=== PATIENT | male | born 1975 | race Caucasian/White ===

== ENCOUNTER 2020-04-03 09:18 | Inpatient (IN) | payer BC, SELFPAY ==
[~2020-04-03] VITALS: Ht 182.9 cm; Wt 111.1 kg
[2020-04-03 09:24] VITALS: BP_SYST 145
--- NOTE | 2020-04-03 09:27 | NUR ---
AMBULATED TO BED 1
--- NOTE | 2020-04-03 09:31 | NUR ---
ER Dr. Hoffman at bedside examining patient.
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
[2020-04-03] MEDS ORDERED: KETOROLAC TROMETHAMINE 60 MG/2 ML VIAL IM ONE ×2 (09:49→10:00)
--- NOTE | 2020-04-03 09:58 | NUR ---
Patient transported to radiology ambulatory, accompanied by staff.
[2020-04-03] MEDS ORDERED: NS 500 ML IV ONE (11:00)
[2020-04-03] MEDS ORDERED: ONDANSETRON HCL 4 MG/2 ML VIAL IVP PRN (11:30)
[2020-04-03] MEDS ORDERED: MORPHINE 2 MG/ML INJ. SYRINGE IVP PRN ×2 (11:30)
[2020-04-03 11:32] LABS: BASOPHILS # (AUTO) 0.1 K/uL (0.0-0.2); BASOPHILS % (AUTO) 1.1 % (0.0-2.0); EOSINOPHILS # (AUTO) 0.1 K/uL (0.0-0.4); EOSINOPHILS % (AUTO) 0.9 % (0.0-4.0); HEMOGLOBIN 15.9 g/dL (14.0-18.0); LYMPHOCYTES % (AUTO) 8.2 % (20.5-51.5); MEAN CORPUSCULAR HEMOGLOBIN 31 pg (27-31); MEAN CORPUSCULAR HGB CONC 34 % (32-36); MEAN CORPUSCULAR VOLUME 90 fL (79.0-98.0); MONOCYTES # (AUTO) 0.5 K/uL (0.0-1.0); MONOCYTES % (AUTO) 4.1 % (1.7-9.3); NEUTROPHILS # (AUTO) 10.8 K/uL (1.8-7.7); NEUTROPHILS % (AUTO) 85.7 % (40.0-70.0); PLATELET COUNT (AUTO) 192 K/uL (130-430); RED BLOOD CELL COUNT(AUTO) 5.21 MIL/uL (4.2-6.2); RED CELL DISTRIBUTION WIDTH 12.9 % (9.0-15.0); WHITE BLOOD COUNT (AUTO) 12.6 K/uL (4.8-10.8)
[2020-04-03 11:46] LABS: CALCIUM 8.7 mg/dL (8.4-11.0); CREATININE 1.1 mg/dL (0.55-1.30); POTASSIUM 4.4 mmol/L (3.5-5.1)
[2020-04-03 11:52] LABS: INR 1.1 (0.80-1.20); PROTHROMBIN TIME 10.9 SECS (9.5-12.5)
[2020-04-03 11:56] LABS: ALBUMIN 3.9 g/dL (3.4-4.8); TOTAL BILIRUBIN 0.4 mg/dL (0.0-1.0)
[2020-04-03] MEDS ORDERED: METF-796 PO (12:05)
[2020-04-03] MEDS ORDERED: DULA0.75 SQ (12:05)
--- NOTE | 2020-04-03 13:02 | NUR ---
Transfer to TELE via ACLS protocol. Licensed nurse present. IV present no signs or symptoms of infiltration.Patient will be admitted to care of DR ZUÑIGA. Admitted to TELE unit. Will go to room 109. Belongings list completed. Complete and up to date summary report printed. SBAR report to be given at bedside with opportunity for questions.
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
[2020-04-03 13:10] VITALS: BP_SYST 134
--- NOTE | 2020-04-03 13:10 | NUR ---
Notes- received patient from Er awake and oriented, has sling on right arm. pain is control at this time. On room air. oriented to room set up, call light use. Enc to call for help as needed.
--- NOTE | 2020-04-03 14:00 | NUR ---
Notes- Eating lunch, no distress noted.
[2020-04-03] MEDS ORDERED: DEXTROSE 50%-WATER 50 ML DISP.SYRIN IVP PRN (15:00)
[2020-04-03] MEDS ORDERED: DEXTROSE 37.5 GM GEL..GRAM. PO PRN (15:00)
[2020-04-03] MEDS ORDERED: D5W 1,000 ML IV PRN (15:00)
[2020-04-03 15:05] VITALS: BP_SYST 134
--- NOTE | 2020-04-03 15:16 | NUR ---
CONSULTATION PAGED/CALLED Reason for Consultation: [] PNEUMOTHORAX Person Who was Notified: [] KATHY Consulting Physician: [] DR ROMEO Barrel Lapper Specialty: [] PULMO Ordering Physician: [] DR ZUÑIGA
--- NOTE | 2020-04-03 15:17 | NUR ---
CONSULTATION PAGED/CALLED Reason for Consultation: [] PNEUMOTHORAX Person Who was Notified: [] KATHY Consulting Physician: [] SHER ESPINOZA Linseed Oil Press Tender Specialty: [] THORACIC SURGEON Ordering Physician: [] DR ZUÑIGA
--- NOTE | 2020-04-03 15:30 | NUR ---
MD rounds Seen by Dr. Luna at bedside. oxygen applied as ordered.
--- NOTE | 2020-04-03 16:00 | NUR ---
Notes- Spoke to Dr. PRATT and made aware of consults. New orders received, Per Md he cannot see patient until mondasy but wants ER doctor to put the Chest Tube. Charge nurse informed ER doctor.
--- NOTE | 2020-04-03 16:15 | NUR ---
Notes- Called CAT scan and follow up on stat CT chest order, per staff they are still busy at this time.
--- NOTE | 2020-04-03 16:42 | NUR ---
CONSULTATION PAGED/CALLED Reason for Consultation: [] CLAVICLE FRACTURE Person Who was Notified: [] LEFT A VOICE MESSAGE ON HIS CELL PHONE Consulting Physician: [] DR MADDI ELIAS Cycle Liaison Specialty: [] ORTHO Ordering Physician: [] DR ZUÑIGA Addendum: 04/03/20 at 1649 by Annel Lopez [place]/ CALLED THE OFFICE NUMBER [phone] AND THE EXCHANGE SAID THAT IT IS DR NÚÑEZ FINGERPRINT EXPERT. SPOKE TO DWAYNE
[2020-04-03] MEDS: HYDROcodone/ACETAMIN 10-325 MG TAB PO PRN ×2 (16:45→23:35)
[2020-04-03] MEDS: INSULIN LISPRO SLIDING SCALE 100 UNITS/ML VIAL (humaLOG) SUBCUT SCH ×2 (16:50→20:20)
--- NOTE | 2020-04-03 17:30 | NUR ---
Notes- applied oxygen on patient as per Dr. Luna's order.
--- NOTE | 2020-04-03 18:02 | NUR ---
Notes- Spoke to Dr. Jiang and he will see patient to in AM.
--- NOTE | 2020-04-03 18:39 | NUR ---
Dr Shrestha SW Dr Shrestha, per MD he cannot see pt until sunday so he is having the ER Doctor to insert chest tube. SW Dr Hoffman twice, Dr Hoffman is swamped with patient in the ED. Patient is asymptomatic at this time, no SOB, O2 sat at 98% on room air. CT Scan was not done yet as of writing. Instructed patient signs and symptoms to watch out for and educated on use of call light, telephone. Patient verbalized understanding
--- NOTE | 2020-04-03 19:30 | NUR ---
Initial note: Received report from zain RN. Patient brought back to the floor from CT scan. Patient is in bed, resting. No acute distress. Breathing is even and nonlabored on 4L nasal cannula. IV site is patent and intact, saline locked. Bed is locked at lowest position. Side rails up x2. Call light is with patient. Safety and fall precautions in place. Will continue with plan of care.
[2020-04-03 20:00] VITALS: BP_SYST 134
--- NOTE | 2020-04-03 20:53 | NUR ---
Spoke to Dr. Shrestha: Spoke to Dr. Shrestha over the phone. Dr. Shrestha wanted to know when the chest tube in place. Notified Addendum: 04/04/20 at 0320 by Swapna Reyes RN Notified dye house supervisor of situation. Per dye house supervisor, ER is saturated and the Dr. Saenz cannot leave ER. Dr. Shrestha asked to speak to dye house supervisor due to the urgency of the chest tube. Dr. Shrestha verbalized new orders. Verified by readback. RN to input. Transferred call to dye house supervisor.
--- NOTE | 2020-04-03 21:26 | NUR ---
Spoke to Dr. Oconnor: Spoke to Dr. Oconnor over the phone. Notified MD of patient's primary physician
[2020-04-03] MEDS ORDERED: LIDOCAINE 2%, 20 ML MDV ONE (22:23)
[2020-04-03] MEDS ORDERED: LIDOCAINE 2%, 20 ML MDV INJ ONE (22:30)
--- NOTE | 2020-04-03 22:30 | NUR ---
Chest tube placement: Chest tube placement per MD order. Dr. Saenz and radiology at bedside. Patient tolerated well.
[2020-04-04] VITALS: BP_SYST 140
[2020-04-04] MEDS: INSULIN LISPRO SLIDING SCALE 100 UNITS/ML VIAL (humaLOG) SUBCUT SCH ×4 (06:06→21:48)
--- NOTE | 2020-04-04 06:50 | NUR ---
CLOSING NOTES: PATIENT IS RESTING IN BED. NO ACUTE DISTRESS. BREATHING IS EVEN AND NONLABORED ON 4L NASAL CANNULA. IV SITE IS PATENT AND INTACT. CHEST TUBE IN PLACE AND DRAINING TO GRAVITY. ALL NEEDS MET. BED IS LOCKED AT LOWEST POSITION. SIDE RAILS UP. CALL LIGHT IS WITH PATIENT. SAFETY AND FALL PRECAUTIONS IN PLACE. WILL ENDORSE CARE TO DAYSHIFT RN.
[2020-04-04 07:12] LABS: BASOPHILS % (AUTO) 0.3 % (0.0-2.0); EOSINOPHILS # (AUTO) 0.3 K/uL (0.0-0.4); EOSINOPHILS % (AUTO) 3.4 % (0.0-4.0); HEMATOCRIT 42.9 % (36-54); HEMOGLOBIN 14.6 g/dL (14.0-18.0); LYMPHOCYTES # (AUTO) 2.5 K/uL (1.0-5.5); LYMPHOCYTES % (AUTO) 31.9 % (20.5-51.5); MEAN CORPUSCULAR HEMOGLOBIN 31 pg (27-31); MEAN CORPUSCULAR HGB CONC 34 % (32-36); MEAN CORPUSCULAR VOLUME 90 fL (79.0-98.0); MONOCYTES # (AUTO) 0.6 K/uL (0.0-1.0); MONOCYTES % (AUTO) 7.5 % (1.7-9.3); NEUTROPHILS # (AUTO) 4.5 K/uL (1.8-7.7); NEUTROPHILS % (AUTO) 56.9 % (40.0-70.0); PLATELET COUNT (AUTO) 169 K/uL (130-430); RED BLOOD CELL COUNT(AUTO) 4.75 MIL/uL (4.2-6.2); RED CELL DISTRIBUTION WIDTH 12.8 % (9.0-15.0); WHITE BLOOD COUNT (AUTO) 7.8 K/uL (4.8-10.8)
[2020-04-04 07:29] LABS: CALCIUM 8.1 mg/dL (8.4-11.0); CREATININE 1.06 mg/dL (0.55-1.30); POTASSIUM 3.8 mmol/L (3.5-5.1)
[2020-04-04 07:36] LABS: ALBUMIN 3.2 g/dL (3.4-4.8); TOTAL BILIRUBIN 0.7 mg/dL (0.0-1.0)
[2020-04-04 08:00] VITALS: BP_SYST 155
[2020-04-04] MEDS: HYDROcodone/ACETAMIN 10-325 MG TAB PO PRN ×2 (08:51→16:29)
--- NOTE | 2020-04-04 11:09 | NUR ---
alert, oriented and awake. finished his breakfast just now. 0800- seen by pulm, dr altman, chest tube to water seal, done latest xray this am, NO ABNORMALITIES, ( no pnemotx) 1000, thoracic came in, Chest tube back to wall suction, -20 ( done). wanted norco 10/325 mg po for pain, relieved ( bp then 155/104).. will initiated IS when patient ready.
[2020-04-04 12:00] VITALS: BP_SYST 136
[2020-04-04 16:00] VITALS: BP_SYST 126
--- NOTE | 2020-04-04 17:19 | NUR ---
compliant with IS on his own, on room air, sat well, 96-98% encouraged to wiggle all fingers, the right ones second pain meds, [place] 10/325mg po given at 1630.
--- NOTE | 2020-04-04 19:30 | NUR ---
initial notes: pt is awake, alert, oriented x 4. no complain of pain, no sob. not distress. stable on monitor. pt has chest tube connect to low suction n wall. no air leaks. iv lock to left ac gauge 20 intact and patent. pt has multiple bruises on his body. scabs are dry and intact. explain plan of care. pt demonstrate how to use IS.needs attended. yvonne light in reach. low bed position. will follow-up.
[2020-04-04 19:57] VITALS: BP_SYST 144
--- NOTE | 2020-04-04 22:00 | NUR ---
pt is watching tv. no pain. not distress. stable. needs attended. will monitor.
[2020-04-05] VITALS: BP_SYST 142
--- NOTE | 2020-04-05 | NUR ---
sleeping, vital sigh stable. needs attended.
--- NOTE | 2020-04-05 02:00 | NUR ---
sleeping, no acute distress stable. safety precaution in place.
[2020-04-05] MEDS: HYDROcodone/ACETAMIN 10-325 MG TAB PO PRN ×3 (03:04→20:47)
--- NOTE | 2020-04-05 03:06 | NUR ---
pt call for assistance to bathroom. steady gait. back to bed. complain of pain. prn pain medication given educate about safeyt and side effects. verbalized understanding. stable. needs attended. yvonne light in reach. will follow-up.
--- NOTE | 2020-04-05 04:00 | NUR ---
sleeping, no pain, no sob, stable. will follow up.
[2020-04-05] MEDS: INSULIN LISPRO SLIDING SCALE 100 UNITS/ML VIAL (humaLOG) SUBCUT SCH ×4 (06:41→20:52)
--- NOTE | 2020-04-05 06:54 | NUR ---
closing: pt is sleeping, wake up for blood sugar check 156, cover per md's order.stable, no pain. chest tube is intact with no air leak. needs attended the whole, call light in reach. will give sbar report to am rn.
[2020-04-05 08:07] VITALS: BP_SYST 144
[2020-04-05 15:31] VITALS: BP_SYST 139
--- NOTE | 2020-04-05 19:55 | NUR ---
CLOSING NOTES, PT HAS BEEN STABLE THE WHOLE SHIFT, GIVEN X1 PAIN MEDICATIONS. CHEST TUBE KEPT AT WATER SEAL SINCE THIS MORNING PER DR PENNY, ENDORSED TO NIGHT NURSE THAT CHEST TUBE SHOUD BE CLAMPED AT 0800 AM 04-06-20 AND CHEST XRAY SCHEDULED AT 10 AM.
[2020-04-05 20:25] VITALS: BP_SYST 142
--- NOTE | 2020-04-05 20:25 | NUR ---
Opening notes Pt AAOx4, VSS, afebrile. No s/s distress noted. Chest tube to low suction with bloody drainage, no air leak noted. Dressing to right upper chest C/D/I. R. arm sling on. Pt c/o 10/14 R. shoulder pain, will medicate as needed. Pt provided with warm wash cloths to wash himself and assisted with gown change. Call light within reach. Safety maintained. To monitor.
--- NOTE | 2020-04-05 20:47 | NUR ---
Pain Pt c/o 10/14 R. shoulder pain, medicated with [place] 1 tab PO as needed. Explained possible side effects, pt verb understanding. Call light/items within reach. Bed low, locked, siderails up x2. To monitor.
[2020-04-06 00:20] VITALS: BP_SYST 135
--- NOTE | 2020-04-06 00:20 | NUR ---
Rounds Pt asleep, easily awakens, VSS, no acute distress noted, pt denies pain. Chest tube R. chest no air leak noted. Call light within reach. Bed low, locked, siderails up x2. To monitor.
--- NOTE | 2020-04-06 04:30 | NUR ---
Rounds Pt awake, no s/s distress noted. Urinal emptied. Chest tube to low wall suction intact, no air leak. Call light within reach. To monitor.
--- NOTE | 2020-04-06 06:22 | NUR ---
Closing notes Pt AAOx4, no s/s distress noted. No c/o pain. Chest tube to low suction with bloody drainage, no air leak noted. Dressing to right upper chest C/D/I. R. arm sling on. Call light/urinal within reach. Safety maintained. To endorse to AM nurse.
[2020-04-06] MEDS: INSULIN LISPRO SLIDING SCALE 100 UNITS/ML VIAL (humaLOG) SUBCUT SCH ×4 (06:26→22:02)
[2020-04-06 07:46] VITALS: BP_SYST 131
--- NOTE | 2020-04-06 08:30 | NUR ---
CHEST TUBE CLAMPED, ENCOURAGED PT TO CALL FOR ASSIST IF HE FEELS SOB OR ANY PAIN AFTER CLAMPING. WILL CONT TO MONITOR.
--- NOTE | 2020-04-06 09:31 | NUR ---
DR PENNY IS HERE AND MADE AWARE THAT CHEST TUBE WAS CLAMPED AT 0830AM, MD INFORMED THAT CXR WAS SCHEDULED AT 1000AM.
[2020-04-06 11:27] VITALS: BP_SYST 127
--- NOTE | 2020-04-06 12:14 | NUR ---
informed dr lainez re results of chest xray, said keep chest tube clamped and he will dc it in am. said he already spoke with dr ag, thoracic surgeon, informed pt of the plan. pt verbalized understanding.
--- NOTE | 2020-04-06 13:17 | NUR ---
Nutrition Update Luis scale 18 noted. Pt admitted for fractured clavicle, pneumothorax Diet: [facility] Diet BMI: 33.2 kg/m2 RD to follow per nutrition care standards.
[2020-04-06 15:29] VITALS: BP_SYST 131
--- NOTE | 2020-04-06 15:34 | NUR ---
pt resting in bed, no sob, no distress. no c/o pain. encouraged to call for asssist and pain meds, call light in reach. will cont to monitor.
--- NOTE | 2020-04-06 17:42 | NUR ---
Pt in bed, eating dinner, denies pain, no sob, Chest tube clamped since 830 am. encouraged to call for assist and pain meds or any concerns. call light in reach.
[2020-04-06 20:00] VITALS: BP_SYST 142
--- NOTE | 2020-04-06 20:00 | NUR ---
Opening notes Pt sitting in chair, talking on the phone, no s/s distress noted. VSS. No c/o pain or sob. Chest tube clamped, dressing R. chest C/D/I. R. arm elevated on pillow. Call light within reach. To monitor.
[2020-04-07 00:05] VITALS: BP_SYST 137
--- NOTE | 2020-04-07 00:05 | NUR ---
Rounds Pt asleep, easily awakens, no s/s distress. VSS. No c/o pain. R. arm maintained elevated on pillow. Call light within reach. To monitor.
--- NOTE | 2020-04-07 04:30 | NUR ---
Rounds Pt awake, no c/o pain. R. arm floated on pillow. Chest tube clamped. Call light within reach. Bed low, locked, siderails up x2. To monitor.
--- NOTE | 2020-04-07 06:27 | NUR ---
Closing notes Pt alert, awake, no s/s distress. BS checked 196, 2 units Humalog administered per protocol. Pt denies pain. Rt chest dressing C/D/I. Chest tube clamped. Call light within reach. Bed low, locked, siderails up x2. Safety maintained.
[2020-04-07] MEDS: INSULIN LISPRO SLIDING SCALE 100 UNITS/ML VIAL (humaLOG) SUBCUT SCH ×4 (06:29→21:36)
[2020-04-07 07:18] LABS: BASOPHILS % (AUTO) 0.4 % (0.0-2.0); EOSINOPHILS # (AUTO) 0.6 K/uL (0.0-0.4); EOSINOPHILS % (AUTO) 6.5 % (0.0-4.0); HEMATOCRIT 48.7 % (36-54); HEMOGLOBIN 16.9 g/dL (14.0-18.0); LYMPHOCYTES # (AUTO) 2.8 K/uL (1.0-5.5); LYMPHOCYTES % (AUTO) 30.2 % (20.5-51.5); MEAN CORPUSCULAR HEMOGLOBIN 31 pg (27-31); MEAN CORPUSCULAR HGB CONC 35 % (32-36); MEAN CORPUSCULAR VOLUME 90 fL (79.0-98.0); MONOCYTES # (AUTO) 0.6 K/uL (0.0-1.0); MONOCYTES % (AUTO) 6.1 % (1.7-9.3); NEUTROPHILS # (AUTO) 5.3 K/uL (1.8-7.7); NEUTROPHILS % (AUTO) 56.8 % (40.0-70.0); PLATELET COUNT (AUTO) 199 K/uL (130-430); RED CELL DISTRIBUTION WIDTH 12.8 % (9.0-15.0); WHITE BLOOD COUNT (AUTO) 9.2 K/uL (4.8-10.8)
[2020-04-07 07:24] LABS: CREATININE 0.94 mg/dL (0.55-1.30); POTASSIUM 4.3 mmol/L (3.5-5.1)
--- NOTE | 2020-04-07 07:45 | NUR ---
Rounds Resting with right upper chest tube clamp and secured , on room air no SOB denies any chest pain , right mid clavicular fracture pain is positional as verbalized, right arm kept supported by pillow discussed to patient safety do's and dont while having chest tube verbalized understanding, oral care given , call light within reach.
[2020-04-07 07:56] VITALS: BP_SYST 130
[2020-04-07 11:08] VITALS: BP_SYST 128
--- NOTE | 2020-04-07 13:00 | NUR ---
PATIENT RESTING: Patient resting quietly. No acute distress noted. Vital signs within normal range., chest tube intact.
--- NOTE | 2020-04-07 13:45 | NUR ---
Rounds Kept sitting in the reclining chair chest tube intact.
[2020-04-07 15:43] VITALS: BP_SYST 129
--- NOTE | 2020-04-07 16:00 | NUR ---
Right Apical chest tube removed by the Animal Behaviorist Dr. Rosenberg with minimal discomfort but tolerated well, covered by vasilinized gauze ,4x4 gauze then secured by tape ,instructed patient to keep the dressing dry/clean x5 days .
--- NOTE | 2020-04-07 16:21 | NUR ---
Spoke to Dr. Jiang that chest tube was removed , no pneumothorax , he will come to see the patient tonight; Dr. Watkins informed that if they will not do surgery for the displaced clavicular fracture patient wants to go home tonight.
--- NOTE | 2020-04-07 19:05 | NUR ---
Report received from day shift nurse. Pt is fully awake, alert and oriented x4. Skin is warm and dry to touch. No signs or symptoms of hypoglycemia pr hyperglycemia noted. Left chest dressing (old chest tube site) is dry and intact with no leakage noted. Pt denies pain or discomfort. Saline lock in LAC is without any signs of infiltration. Fall and safety precautions are in place.
[2020-04-07 20:00] VITALS: BP_SYST 13; BP_SYST 138
--- NOTE | 2020-04-07 21:05 | NUR ---
Pt washed his hair in the bathroom and also performed his own hygiene, including devan care and brushing his teeth. No c/o pain or discomfort.
--- NOTE | 2020-04-07 21:36 | NUR ---
Accucheck 199 and 2 units Humalog Insulin given SQ. Skin remains warm and dry to touch. Pt declined HS snacks. Fall and safety precautions are in place.
--- NOTE | 2020-04-07 23:00 | NUR ---
Pt is resting quietly in bed. No c/o pain or discomfort.
[2020-04-08] VITALS: BP_SYST 130
--- NOTE | 2020-04-08 01:00 | NUR ---
Sleeping without any distress.
--- NOTE | 2020-04-08 03:00 | NUR ---
Sleeping [id number] in bed. Fall and safety precautions are in place.
--- NOTE | 2020-04-08 05:00 | NUR ---
Awake and alert. No c/o pain or discomfort.
[2020-04-08] MEDS: INSULIN LISPRO SLIDING SCALE 100 UNITS/ML VIAL (humaLOG) SUBCUT SCH ×2 (06:26→11:28)
--- NOTE | 2020-04-08 06:26 | NUR ---
Accucheck 221 and 4 units Humalog Insulin given SQ. Skin remains warm and dry to touch.
[2020-04-08 08:05] VITALS: BP_SYST 141
--- NOTE | 2020-04-08 08:05 | NUR ---
INITIAL ROUNDS Received pt AAOx4, no s/s resp distress, c/o mild pain 06/16-pt declines pain medication at this time. Plan of care for the day reviewed with pt-pt verbalized his understanding. Pt requesting to see Dr. Jiang to find out his surgical status-will call MD. Pain management, skin and safety discussed-teach back done. Call light within reach.
--- NOTE | 2020-04-08 10:42 | NUR ---
Dr Jiang SW with who stated that he reviewed the XRay and there were no changes. He will see patient this afternoon, Patient needs to follow up at Dr Jiang office on 04/15/20 for a follow up xray. keep sling on
--- NOTE | 2020-04-08 10:50 | NUR ---
ENDORSED CARE TO ERIN Robins RN to continue care of the pt, endorsed care to her.
[2020-04-08 11:28] VITALS: BP_SYST 128
[2020-04-08 11:40] VITALS: BP_SYST 128
--- NOTE | 2020-04-08 12:30 | NUR ---
D/C Patient Patient given medication reconciliation form and D/C instructions. Exit Care provided. Patient verbalized understanding. MD discussed with patient the results and treatment provided. Ambulatory with steady gait for discharge to home, with sling in right arm. Patient in stable condition, ID band removed. IV catheter removed, intact and dressing applied, no active bleeding. Patient educated on pain management. All belongings sent with patient.
== END 2020-04-08 12:45 | disposition home or self-care (01) | DRG 563 ==
LOC: SED 09:18 → STU 11:16 → SMU 04-07 14:00
PROVIDERS: ADMIT Internal Medicine; ATTEND Internal Medicine
PROC: 0W9930Z Drainage of Right Pleural Cavity with Drainage Device, Percutaneous Approach (ICD-10-PCS; principal; 2020-04-03)
DX: S42.021A Displaced fracture of shaft of right clavicle, initial encounter for closed fracture (principal); S42.292A Other displaced fracture of upper end of left humerus, initial encounter for closed fracture; S22.49XA Multiple fractures of ribs, unspecified side, initial encounter for closed fracture; S27.0XXA Traumatic pneumothorax, initial encounter; E11.9 Type 2 diabetes mellitus without complications; I10 Essential (primary) hypertension; X58.XXXA Exposure to other specified factors, initial encounter; Z20.828 Contact with and (suspected) exposure to other viral communicable diseases; Y93.89 Activity, other specified; Y92.89 Other specified places as the place of occurrence of the external cause; Y99.8 Other external cause status; V18.4XXA Pedal cycle driver injured in noncollision transport accident in traffic accident, initial encounter; Y93.55 Activity, bike riding; Z79.84 Long term (current) use of oral hypoglycemic drugs
CPT/HCPCS: 36415; 71045; 71046-TC; 71260-TC; 76376; 80048; 80053; 82962; 85025; 85610-TC; 85730-TC; 96360; 96372; 99285; G0378; J1885; J2001; Q9967